=== PATIENT | male | born 1955 | race Two or more races ===

== ENCOUNTER 2017-11-12 08:10 | Outpatient (CLI) | payer OTHER ==
[~2017-11-12 08:10] MED LIST: DOLOGESIC CAPLE1 TAB PO; IBUPROFEN800 MG PO; NABUMETONE500 MG PO; ORPH100T PO
== END 2017-11-12 09:47 | disposition home or self-care (01) ==
LOC: SONOGRAMA 08:10
DX: R10.13 Epigastric pain (principal)

== ENCOUNTER 2020-12-29 12:03 | Outpatient (CLI) | payer OTHER | END 2020-12-29 15:14 | disposition home or self-care (01) | LOC: RAD 12:03 | DX: S63.601A Unspecified sprain of right thumb, initial encounter (principal) ==

== ENCOUNTER 2021-09-01 11:08 | Outpatient (CLI) | payer OTHER | END 2021-09-01 11:17 | disposition home or self-care (01) | LOC: SONOGRAMA 11:08 | PROVIDERS: ATTEND Internal Medicine Endocrinology, Diabetes & Metabolism | DX: E04.1 Nontoxic single thyroid nodule (principal) ==

== ENCOUNTER 2022-03-04 11:54 | Emergency (ER) | payer OTHER ==
[~2022-03-04] VITALS: Ht 193 cm; Wt 110.2 kg
[2022-03-04] MEDS ORDERED: JANUMET 50-1,01 EACH PO (14:43)
[2022-03-04] MEDS ORDERED: SYNTHROID150 MCG PO (14:44)
== END 2022-03-04 14:49 | disposition home or self-care (01) ==
LOC: ER 11:54
DX: M12.831 Other specific arthropathies, not elsewhere classified, right wrist (principal); Z88.8 Allergy status to other drugs, medicaments and biological substances